=== PATIENT | female | born 1955 | race Caucasian/White ===

== ENCOUNTER 2019-05-14 12:16 | Emergency (ER) | payer MEDICARE ==
[~2019-05-14] VITALS: Ht 170.2 cm; Wt 150.0 kg
[2019-05-14] MEDS ORDERED: ESCITALOPRAM OX10 MG PO (12:36)
[2019-05-14 13:31] LABS: HEMATOCRIT 38.8 % (37.0-47.0); HEMOGLOBIN 12.3 g/dl (12.0-16.0); IMMATURE GRANULOCYTES 0.4 % (0.0-5.0); MEAN CELL VOLUME 92.6 fL CALC (80.0-100.0); MEAN CORPUSCULAR HGB 29.4 pG CALC (26.0-32.0); MEAN CORPUSCULAR HGB CONC 31.7 g/L CALC (32.0-36.0); NEUT# 4.85 thou/uL (2.00-7.15); RED BLOOD COUNT 4.19 mill/uL (4.20-5.60); RED CELL DISTRI WIDTH 13.2 % (11.5-15.5)
[2019-05-14 13:47] LABS: ALBUMIN 4.2 g/dL (3.2-5.0); ALKALINE PHOSPHATASE 105 u/l (38-126); ANION GAP 12 (6-22 (CALC)); BILIRUBIN, TOTAL 0.3 mg/dL (0.0-1.4); BUN 15 mg/dL (8-23); BUN/CREATININE RATIO 17 (12-20 (CALC)); CARBON DIOXIDE 28 mmol/l (22-30); CHLORIDE 105 mmol/l (95-108); CREATININE 0.9 mg/dL (0.5-1.0); GFR > 60 ML/MIN (>=60 (CALC)); GFR FOR AFR.AMER. > 60 ML/MIN (>=60 (CALC)); POTASSIUM 4.2 mmol/l (3.5-5.1); SGOT/AST 20 u/l (9-36); SODIUM 140 mmol/l (137-146); TOTAL PROTEIN 7.7 g/dL (6.3-8.2)
[2019-05-14] MEDS ORDERED: TRAMADOL HYDROC50 MG PO (14:11)
[2019-05-14 14:26] VITALS: BP 147/72
== END 2019-05-14 14:42 | disposition home or self-care (01) ==
LOC: ED 12:16
DX: M17.11 Unilateral primary osteoarthritis, right knee (principal); M25.561 Pain in right knee; R50.9 Fever, unspecified; M25.461 Effusion, right knee

== ENCOUNTER 2019-11-19 | Emergency (ER) | payer MEDICARE ==
[~2019-11-19] MED LIST: ESCITALOPRAM OX10 MG PO; TRAMADOL HYDROC50 MG PO
== END 2019-11-19 22:15 | disposition home or self-care (01) ==
DX: S93.402A Sprain of unspecified ligament of left ankle, initial encounter (principal); X58.XXXA Exposure to other specified factors, initial encounter; M79.662 Pain in left lower leg

== ENCOUNTER 2021-05-29 14:25 | Emergency (ER) | payer MEDICARE ==
[~2021-05-29] VITALS: Ht 170.2 cm; Wt 88.6 kg
[2021-05-29 14:25] VITALS: BP 115/64
[2021-05-29 15:58] LABS: HEMATOCRIT 40.4 % (37.0-47.0); HEMOGLOBIN 12.7 g/dl (12.0-16.0); IMMATURE GRANULOCYTES 0.6 % (0.0-5.0); MEAN CORPUSCULAR HGB 29.5 pG CALC (26.0-32.0); MEAN CORPUSCULAR HGB CONC 31.4 g/dL CAL (32.0-36.0); NEUT# 3.27 thou/uL (2.00-7.15); RED BLOOD COUNT 4.3 mill/uL (4.20-5.60); RED CELL DISTRI WIDTH 13.6 % (11.5-15.5)
[2021-05-29 16:00] LABS: URINE BILIRUBIN - DIPSTICK NEGATIVE (NEGATIVE); URINE BLOOD DIPSTICK MODERATE (NEGATIVE); URINE COLOR YELLOW; URINE GLUCOSE - DIPSTICK NEGATIVE (NEGATIVE); URINE KETONE TRACE mg/dL (NEGATIVE); URINE LEUK ESTERASE TRACE (NEGATIVE); URINE PROTEIN - DIPSTICK 100 mg/dL (NEG-TRACE); URINE SPECIFIC GRAVITY 1.025; URINE UROBILINOGEN - DIPSTICK 0.2 E.U./dL (0.2)
[2021-05-29 16:02] LABS: URINE NITRITE - DIPSTICK POSITIVE (Negative)
[2021-05-29 16:10] LABS: URINE BACTERIA MANY hpf; URINE SQUAMOUS EPITHELIAL CELL MANY EPI/hpf (0-FEW)
[2021-05-29 17:12] LABS: ALBUMIN 3.7 g/dL (3.2-5.0); ALKALINE PHOSPHATASE 76 u/l (38-126); AMYLASE 105 u/l (30-110); BUN 16 mg/dL (8-23); BUN/CREATININE RATIO 16 (12-20 (CALC)); CARBON DIOXIDE 24 mmol/l (22-30); CHLORIDE 98 mmol/l (95-108); GFR 55 ML/MIN (>=60 (CALC)); GFR FOR AFR.AMER. > 60 ML/MIN (>=60 (CALC)); LIPASE 282 u/l (23-300); POTASSIUM 4.1 mmol/l (3.5-5.1); TOTAL PROTEIN 7.3 g/dL (6.3-8.2)
[2021-05-29 17:13] LABS: ANION GAP 12 (6-22 (CALC)); BILIRUBIN, TOTAL 0.3 mg/dL (0.0-1.4); SGOT/AST 58 u/l (9-36); SODIUM 130 mmol/l (137-146)
[2021-05-29] MEDS ORDERED: LOMOTIL2.5 MG PO (17:58)
[2021-05-29] MEDS ORDERED: KEFLEX500 MG PO (17:58)
== END 2021-05-29 18:13 | disposition home or self-care (01) ==
LOC: ED 14:25
PROVIDERS: Emergency Medicine
DX: U07.1 COVID-19 (principal); N39.0 Urinary tract infection, site not specified; B96.1 Klebsiella pneumoniae [K. pneumoniae] as the cause of diseases classified elsewhere; F32.9 Major depressive disorder, single episode, unspecified

== ENCOUNTER 2023-04-25 08:05 | Emergency (ER) | payer MEDICARE ==
[2023-04-25] VITALS (22 sets, daily range): BP systolic 142–204; BP diastolic 66–105
[~2023-04-25] VITALS: Ht 162.6 cm; Wt 87.1 kg
[~2023-04-25 08:05] MED LIST changes: +KEFLEX500 MG PO; +LOMOTIL2.5 MG PO
[2023-04-25 08:59] LABS: BASO% 0.4 % (0-3); EOS% 3.8 % (0-8); HEMOGLOBIN 14.7 g/dl (12.0-16.0); IMMATURE GRANULOCYTES 0.7 % (0.0-5.0); LYMPH% 35.2 % (15-41); MEAN CELL VOLUME 94.1 fL CALC (80.0-100.0); MEAN CORPUSCULAR HGB 29.1 pG CALC (26.0-32.0); MEAN CORPUSCULAR HGB CONC 30.9 g/dL CAL (32.0-36.0); MONO% 6.5 % (2-13); NEUT# 6.22 thou/uL (2.00-7.15); NEUT% 53.4 % (42-76); RED BLOOD COUNT 5.05 mill/uL (4.20-5.60); RED CELL DISTRI WIDTH 13.9 % (11.5-15.5)
[2023-04-25 09:19] LABS: ALBUMIN 4.3 g/dL (3.2-5.0); CREATININE 1.2 mg/dL (0.5-1.0); TOTAL PROTEIN 7.4 g/dL (6.3-8.2)
[2023-04-25 09:20] LABS: HEMATOCRIT 47.5 % (37.0-47.0)
[2023-04-25 09:26] LABS: BILIRUBIN, TOTAL 0.6 mg/dL (0.02-1.3); POTASSIUM 5.5 mmol/l (3.5-5.1)
[2023-04-25 12:58] LABS: CREATININE 1.2 mg/dL (0.5-1.0); POTASSIUM 4.3 mmol/l (3.5-5.1)
[2023-04-25] MEDS ORDERED: SPS15 GM/601 PO (13:33)
[2023-04-25] MEDS ORDERED: LISINOPRIL10 MG PO (13:36)
== END 2023-04-25 13:55 | disposition home or self-care (01) ==
LOC: ED 08:05
PROVIDERS: Family Medicine
DX: R51.9 Headache, unspecified (principal); I10 Essential (primary) hypertension; E87.6 Hypokalemia; E66.9 Obesity, unspecified; F32.A Depression, unspecified; Z20.822 Contact with and (suspected) exposure to COVID-19

== ENCOUNTER 2023-04-28 08:56 | Emergency (ER) | payer MEDICARE ==
[~2023-04-28] VITALS: Ht 162.6 cm; Wt 86.6 kg
[2023-04-28] VITALS (13 sets, daily range): BP systolic 177–206; BP diastolic 76–102
[~2023-04-28 08:56] MED LIST changes: +LISINOPRIL10 MG PO; +SPS15 GM/601 PO
[2023-04-28] MEDS ORDERED: PREDNISONE20 MG PO (09:15)
[2023-04-28] MEDS ORDERED: TRELEGY ELLIPTA1 AER (09:16)
[2023-04-28 09:25] LABS: BASO% 0.4 % (0-3); HEMOGLOBIN 12.8 g/dl (12.0-16.0); IMMATURE GRANULOCYTES 0.3 % (0.0-5.0); LYMPH% 31.9 % (15-41); MEAN CELL VOLUME 94.2 fL CALC (80.0-100.0); MEAN CORPUSCULAR HGB 28.7 pG CALC (26.0-32.0); MEAN CORPUSCULAR HGB CONC 30.5 g/dL CAL (32.0-36.0); MONO% 6.9 % (2-13); NEUT# 7.23 thou/uL (2.00-7.15); NEUT% 58.5 % (42-76); RED BLOOD COUNT 4.46 mill/uL (4.20-5.60); RED CELL DISTRI WIDTH 14.2 % (11.5-15.5)
[2023-04-28 09:40] LABS: ALKALINE PHOSPHATASE 85 u/l (38-126); ANION GAP 7 (6-22 (CALC)); BILIRUBIN, TOTAL 0.5 mg/dL (0.02-1.3); BUN 19 mg/dL (8-23); BUN/CREATININE RATIO 20 (12-20 (CALC)); CARBON DIOXIDE 27 mmol/l (22-30); CHLORIDE 105 mmol/l (95-108); GFR FOR AFR.AMER. > 60 ML/MIN (>=60 (CALC)); GFR OTHER RACES 55 ML/MIN (>=60 (CALC)); SGOT/AST 17 u/l (9-36); SODIUM 136 mmol/l (137-146)
[2023-04-28] MEDS ORDERED: HYDROCHLOROT25 MG PO (11:22)
[2023-04-29] MEDS ORDERED: AMLODIPINE BESYL5 MG PO (04:46)
[2023-04-29] MEDS ORDERED: FIORICET PO (04:46)
== END 2023-04-28 11:51 | disposition home or self-care (01) ==
LOC: ED 08:56
PROVIDERS: Family Medicine
DX: I10 Essential (primary) hypertension (principal); F32.A Depression, unspecified

== ENCOUNTER 2023-04-29 01:46 | Emergency (ER) | payer MEDICARE ==
[~2023-04-29] VITALS: Ht 162.6 cm; Wt 86.6 kg
[2023-04-29] VITALS (11 sets, daily range): BP systolic 165–211; BP diastolic 66–150
[~2023-04-29 01:46] MED LIST changes: +HYDROCHLOROT25 MG PO; +PREDNISONE20 MG PO; +TRELEGY ELLIPTA1 AER
[2023-04-29 02:22] LABS: BASO% 0.4 % (0-3); EOS% 3.1 % (0-8); HEMATOCRIT 42.5 % (37.0-47.0); HEMOGLOBIN 13.1 g/dl (12.0-16.0); IMMATURE GRANULOCYTES 0.3 % (0.0-5.0); LYMPH% 32.7 % (15-41); MEAN CELL VOLUME 94.4 fL CALC (80.0-100.0); MEAN CORPUSCULAR HGB 29.1 pG CALC (26.0-32.0); MEAN CORPUSCULAR HGB CONC 30.8 g/dL CAL (32.0-36.0); MONO% 7.2 % (2-13); NEUT# 5.8 thou/uL (2.00-7.15); NEUT% 56.3 % (42-76); RED BLOOD COUNT 4.5 mill/uL (4.20-5.60)
[2023-04-29 02:37] LABS: ALKALINE PHOSPHATASE 90 u/l (38-126); ANION GAP 13 (6-22 (CALC)); BILIRUBIN, TOTAL 0.6 mg/dL (0.02-1.3); BUN 19 mg/dL (8-23); BUN/CREATININE RATIO 19 (12-20 (CALC)); CARBON DIOXIDE 26 mmol/l (22-30); CHLORIDE 100 mmol/l (95-108); GFR FOR AFR.AMER. > 60 ML/MIN (>=60 (CALC)); GFR OTHER RACES 55 ML/MIN (>=60 (CALC)); POTASSIUM 3.8 mmol/l (3.5-5.1); SGOT/AST 17 u/l (9-36); SODIUM 136 mmol/l (137-146); TOTAL PROTEIN 7.1 g/dL (6.3-8.2)
[2023-04-29 04:23] LABS: URINE BILIRUBIN - DIPSTICK NEGATIVE (NEGATIVE); URINE COLOR YELLOW; URINE GLUCOSE - DIPSTICK NEGATIVE (NEGATIVE); URINE KETONE Negative (NEGATIVE); URINE PROTEIN - DIPSTICK Trace mg/dL (NEG-TRACE); URINE SPECIFIC GRAVITY 1.015; URINE UROBILINOGEN - DIPSTICK 0.2 E.U./dL (0.2)
[2023-04-29 04:24] LABS: URINE BLOOD DIPSTICK TRACE (NEGATIVE); URINE LEUK ESTERASE SMALL (NEGATIVE); URINE NITRITE - DIPSTICK NEGATIVE (Negative)
[2023-04-29 04:34] LABS: URINE BACTERIA FEW hpf; URINE MUCUS FEW hpf (NONE-FEW); URINE SQUAMOUS EPITHELIAL CELL MANY EPI/hpf (0-FEW); URINE WBC 0-2 WBC/hpf (0-5)
[2023-04-29] MEDS ORDERED: FIORICET PO (04:46)
[2023-04-29] MEDS ORDERED: AMLODIPINE BESYL5 MG PO (04:46)
== END 2023-04-29 06:38 | disposition home or self-care (01) ==
LOC: ED 01:46
PROVIDERS: Family Medicine
DX: R51.9 Headache, unspecified (principal); I10 Essential (primary) hypertension; F32.A Depression, unspecified; R82.71 Bacteriuria